=== PATIENT | female | born 1950 | race Caucasian/White ===

== ENCOUNTER → 2017-10-04 11:04 | Outpatient (REF) | payer MEDICARE, BC, SELFPAY | LOC: LBN 11:04 | DX: N89.8 Other specified noninflammatory disorders of vagina (principal) | CPT/HCPCS: 87480; 87510; 87660 ==

== ENCOUNTER → 2017-11-14 12:54 | Outpatient (BNVA) | payer MEDICARE, BC, SELFPAY | PROVIDERS: Visit Provider Surgery | DX: Z12.11 Encounter for screening for malignant neoplasm of colon (principal); Z80.0 Family history of malignant neoplasm of digestive organs ==

== ENCOUNTER 2017-11-21 16:58 | Emergency (ER) | payer MEDICARE, BC, SELFPAY ==
[2017-11-21 17:06] VITALS: BP 162/80; PULSE 87; RESP 17; TEMP 37.1; O2SAT 36
[2017-11-21] MEDS: Lidocaine 5% Patch 1 PATCH (18:28)
--- NOTE | 2017-11-21 18:33 | W.ED.GENAD ---
Discharge Plan Disposition Patient Disposition: HOME Condition: Good Discharge Details Chief Complaint: Nk/Back Pain Clinical Impression: Muscle spasm of back, Acute lumbar myofascial strain Primary Care Provider: Haven Segovia ED Provider: Elijah Haynes Home Meds and New Rx's Prescriptions: New cyclobenzaprine 5 mg tablet 5 mg PO BID PRN (Reason: muscle spasm) Qty: 10 RF: 0 Continue psyllium husk (aspartame) [Metamucil Sugar-Free (aspart)] 3.4 gram/5.8 gram powder PO DAILY RF: 0 polyethylene glycol 3350 17 gram powder in packet 255 g PO DAILY Qty: 15 RF: 0 calcium polycarbophil [Fiber-Tabs] 625 MG tablet 1 tab PO BID Qty: 60 RF: 0 levothyroxine 112 MCG tablet 112 mcg PO DAILY Qty: 90 RF: 3 rosuvastatin [Crestor] 20 MG tablet 20 mg PO DAILY Qty: 90 RF: 4 No Action metoprolol succinate 50 mg Tablet Extended Release 24 Hr 50 mg PO HS RF: 0 acetaminophen 500 mg Capsule 1,000 mg PO PRN PRNRF: 0 hydrochlorothiazide 12.5 MG capsule 12.5 mg PO HS RF: 0 Discharge Instructions Instructions: Muscle Strain (ED), Muscle Spasm (ED), Lower Back Exercises (ED) Additional Instructions: Feel free to return to the emergency department for any new or worsening symptoms otherwise follow-up with your primary care provider as needed for reassessment if not improving. He may continue to take diks-tgf-dikqpsy pain medication. Please be cautious with prescribed muscle relaxant as this may make you sleepy or drowsy Referrals: Haven Segovia, CORPORATE ADMINISTRATIVE ASSISTANT [Primary Care Provider] - (Follow-up with your primary care provider as needed in 1-2 weeks if not improving.) Discharge Data Discharge Date/Time-TO BE ENTERED AT DEPARTURE: 11/21/17 18:50 Medical Decision Making Patient presenting to the emergency department for sudden onset of sharp back pain. Patient does state that she had been gardening and bending over taking quite a bit this weekend and today when she was twisted turning around and coughed she noticed a sharp pulling in her back. Patient does have paraspinal tenderness to the left lumbar region with no vertebral tenderness, no straight leg raise, and no abnormalities in reflexes. Patient has no signs of cauda equina, epidural abscess, or emergent back pain findings. I suspect lower lumbar strain with muscular spasm due to the physical labor patient was doing this weekend. Patient prescribed low-dose Flexeril twice daily and given lidocaine patch to see if this resolves her symptoms. She was encouraged to follow-up with her primary care provider if not improving over the next week or to return to the emergency department immediately for any new or worsening symptoms. After discussion of diagnosis and plan of care patient is no further needs, questions, or concerns and states clear understanding to return to the emergency department for any worsening symptoms. HPI General Date/Time Provider Initiated Documentation: 11/21/17 17:30. Limitations to Documentation: no limitations. Information obtained by: patient and RN notes reviewed. History of Present Illness 67 year old F presents to the emergency department with the chief complaint of Back pain, described as moderate, with intensity rated at 7. Quality is described as aching and sharp, and is localized to the back. Patient started experiencing this day(s) (1) and it has been constant. No relieving factors improve symptom(s), Movement worsens symptoms . Patient notes no other symptoms.. Related Data Home Medications Medication Instructions Recorded Confirmed calcium polycarbophil [Fiber-Tabs] 1 tab PO BID #60 tab 09/13/16 11/24/17 levothyroxine 112 mcg PO DAILY #90 tab-cap 01/23/17 11/24/17 rosuvastatin [Crestor] 20 mg PO DAILY #90 tab 02/10/17 11/24/17 polyethylene glycol 3350 17 gram 255 g PO DAILY #15 each 11/14/17 11/21/17 oral powder packet psyllium husk (aspartame) 3.4 gm PO DAILY gm 11/14/17 11/14/17 gram/5.8 gram oral powder cyclobenzaprine 5 mg PO BID PRN #10 tab 11/21/17 11/24/17 acetaminophen 1,000 mg PO PRN PRN 11/24/17 11/24/17 hydrochlorothiazide 12.5 mg PO HS 11/24/17 11/24/17 metoprolol succinate 50 mg PO HS 11/24/17 11/24/17 Previous Rx's Medication Instructions Recorded levothyroxine 112 mcg PO DAILY #90 tab-cap 01/23/17 rosuvastatin [Crestor] 20 mg PO DAILY #90 tab 02/10/17 polyethylene glycol 3350 17 gram 255 g PO DAILY #15 each 11/14/17 oral powder packet cyclobenzaprine 5 mg PO BID PRN #10 tab 11/21/17 Allergies Allergy/AdvReac Type Severity Reaction Status Date / Time No Known Allergies Allergy Unverified 10/04/17 09:08 General Stated Complaint: Nk/Back Pain IVETTE: 4 Review of Systems Constitutional Denies chills and Denies fever(s) Cardiovascular Denies chest pain and Denies dyspnea on exertion Respiratory Denies dyspnea on exertion Gastrointestinal Denies abdominal pain, Denies change in bowel habits, Denies diarrhea, Denies nausea and Denies vomiting Genitourinary Denies urinary incontinence Musculoskeletal Reports as per HPI and Reports back pain Neurologic Denies sensory deficit PFSH Family History Mother Diabetes Father Essential hypertension Personal history of malignant neoplasm Heart disease Hyperlipidemia Brother Essential hypertension Hyperlipidemia Brother Essential hypertension Diabetes Hyperlipidemia Grandfather Essential hypertension Heart disease Grandfather Personal history of malignant neoplasm Grandmother Essential hypertension Heart disease Hyperlipidemia Grandmother Essential hypertension Heart disease Hyperlipidemia Medical History Cystocele (Chronic) Hyperlipidemia (Chronic) Hypertension (Chronic) Hypothyroidism (Chronic) Non-toxic multinodular goiter (Chronic) Overweight (Chronic) Social History household members: spouse current occupational status: retired Smoking/Tobacco Use Status: Never alcohol intake: current alcohol intake frequency: holidays/special occasions only substance use type: does not use Surgical History Colonoscopy - MAC (11/05/12) Dilation and curettage (~1974) Exam Const General: cooperative and no acute distress Orientation: alert, awake and oriented x3 Neck Neck: normal visual inspection, full ROM and no meningeal signs Resp Effort & Inspection: normal respiratory effort Auscultation: clear to auscultation bilaterally Cardio Rate: regular rate Rhythm: regular rhythm Heart Sounds: S1 normal and S2 normal GI Palpation: no hepatosplenomegaly, no aortic enlargement, no masses and no pulsatile masses Back/Spine/Pelvis Back: No mass, No erythema, No warmth, No sacral edema and No ecchymosis Thoracic/Lumbar Spine: straight leg raise negative bilaterally, pain with thoraco-lumbar ROM, paraspinal tenderness, thoraco-lumbar ROM limited and No lumbar spinal tenderness Pelvis: no pain with anterior-posterior compression, no pain with lateral compression and sciatic notch tenderness Neuro General: alert, awake and oriented x3 DTR's: Rt Patellar: 2+, Lt Patellar: 2+, Rt Ankle: 2+ and Lt Ankle: 2+ Course Vital Signs Temperature 37.1 C 11/21/17 17:06 Pulse 87 11/21/17 17:06 Respiratory Rate 17 11/21/17 17:06 Blood Pressure 162/80 H 11/21/17 17:06 Pulse Oximetry 36 L 11/21/17 17:06 Temperature 37.1 C 11/21/17 17:06 Temperature Source Temporal Artery Scan 11/21/17 17:06 Pulse 87 11/21/17 17:06 Respiratory Rate 17 11/21/17 17:06 Respiratory Effort 11/21/17 17:13 Blood Pressure 162/80 H 11/21/17 17:06 Pulse Oximetry 36 L 11/21/17 17:06
== END 2017-11-21 18:50 | disposition home or self-care (01) ==
PROVIDERS: Emergency Provider Nurse Practitioner Family
DX: S39.012A Strain of muscle, fascia and tendon of lower back, initial encounter (principal); M62.830 Muscle spasm of back; X50.1XXA Overexertion from prolonged static or awkward postures, initial encounter; Y93.H2 Activity, gardening and landscaping; I10 Essential (primary) hypertension
CPT/HCPCS: 99283

== ENCOUNTER 2017-11-28 07:32 | Day surgery (SDC) | payer MEDICARE, BC, SELFPAY ==
--- NOTE | 2017-11-28 06:41 | W.COLOREPORT ---
Colonoscopy Report Date of procedure: 11/28/17 Pre-op diagnosis general: Screening/ Family History Post-op diagnosis procedure note: other (Newell-diverticulosis) Procedure: Colonoscopy with polypectomy Surgeon: María Elena Sam Anesthesia proc note operative: MAC (Christian White CRNA) Estimated blood loss (mL): 3 Pathology: other (Transverse bx ?polyp) Complications: None Disposition: same day Indications: Mrs. Rios is a pleasant 67 year old female who is here for a colonoscopy. She has had a hyperplastic polyp in the past and has a family history of colon cancer in her father. Risks, benefits and complications have been reviewed. Complications include but are not limited to bleeding, pain, perforation, missed small lesion/polyp, sore throat, aspiration and adverse reaction to the medications. Questions were entertained and answered to their satisfaction and they wished to proceed. No guarantees were given or implied. Prep: Miralax/Dulcolax Procedure Start Time: 09:19 Procedure End Time: 09:40 Retraction Time: 20 minutes Findings: Newell-diverticulosis. ? small 2 millimeter polyp in the transverse colon Procedure Description: After informed consent was obtained the patient was taken to the procedure room and placed in a left decubitous position. Monitors were applied and a time out was done. The patients name, date of , procedure, allergies to medications and metal in their body was reviewed. The patient was then sedated. Once sedated and comfortable a rectal exam was done. External exam was normal. Internal exam revealed a normal sphincter tone and no palpable masses. The scope was then introduced and retroflexed. No internal hemorrhoids were identified. The scope was then advanced to the cecum without difficulty. The TI and appendiceal orifice were identified. The prep was good. The scope was then slowly retracted over 20 minutes back into the rectum. The scope was removed and the patient was woken up and taken back to Same day surgery in stable condition. There was Newell-diverticulosis and a biopsy was done in the transverse colon for a ? polyp. The patient tolerated the procedure well and there were no immediate complications. Follow up: The patient should follow up in 5 years unless they develop changes in bowel habits or other new gastrointestinal complaints.
--- NOTE | 2017-11-28 06:45 | PDOC.DSDIS_ITS ---
Discharge Plan Disposition Patient Disposition: HOME Condition: Good Discharge Details Reason For Visit: screening colonoscopy Attending Provider: María Elena Sam Primary Care Provider: Haven Segovia Home Meds and New Rx's Prescriptions: Continue psyllium husk (aspartame) [Metamucil Sugar-Free (aspart)] 3.4 gram/5.8 gram powder PO DAILY RF: 0 calcium polycarbophil [Fiber-Tabs] 625 MG tablet 1 tab PO BID Qty: 60 RF: 0 levothyroxine 112 MCG tablet 112 mcg PO DAILY Qty: 90 RF: 3 rosuvastatin [Crestor] 20 MG tablet 20 mg PO DAILY Qty: 90 RF: 4 cyclobenzaprine 5 mg tablet 5 mg PO BID PRN (Reason: muscle spasm) Qty: 10 RF: 0 metoprolol succinate 50 mg Tablet Extended Release 24 Hr 50 mg PO HS RF: 0 acetaminophen 500 mg Capsule 1,000 mg PO PRN PRNRF: 0 hydrochlorothiazide 12.5 MG capsule 12.5 mg PO HS RF: 0 Discontinued polyethylene glycol 3350 17 gram powder in packet 255 g PO DAILY Qty: 15 RF: 0 bisacodyl [Dulcolax (bisacodyl)] 5 mg Tablet,Delayed Release (Dr/Ec) 5 mg PO PRN PRNRF: 0 Discharge Instructions Instructions: Colonoscopy (DC), Diverticulosis (DC) Additional Instructions: Findings: Diverticulosis throughout the large bowel Possibly a small polyp although I am not sure. I biopsied the area Follow up: 5 years New Medications: none Please call if you develop: fevers >101.5 Nausea or Vomiting Abdominal pain that is not transient DAY SURGERY UNIT POST COLONOSCOPY INSTRUCTIONS 1. Because there will be medication in your system for the next 24 hours, you may feel a little sleepy. Your coordination will be affected. Therefore: a. Do not drive or operate dangerous equipment for 24 hours. b. Do not drink alcohol beverages for 24 hours (not even beer). c. Plan to go home and rest for the day. 2. Generally there are no restrictions on your activity after a day or so has gone by, but you may feel a bit fatigued for a few days. 3 After you arrive home you may have a light meal and return to a normal diet as you can tolerate it without feeling sick to your stomach. 4. After surgery, you may feel pain or discomfort. This should be only transient , but if it persists please contact your doctor. 5. If there are any questions regarding the findings of your procedure, please feel free to contact your doctor. 6. If you are unable to contact your doctor with a problem, contact the hospital at [phone]. 7. Continue all your regular medications unless directed otherwise. I understand the above instructions and have no questions. Signature of Patient or Responsible Adult Escort Date/Time Name of Responsible Adult Escort Signature of Nurse Date/Time Stand Alone Forms: Masood Lozada (PASHAU) Print Language: Sammarinese Activity:: Activity as Tolerated Diet:: High Fiber diet Discharge Orders Discharge Orders: Discharge Order (Routine); Ordered 11/28/17 Ordered By: María Elena Sam DS: Diagnosis Discharge Diagnosis (1) Family history of colon cancer: Status: Acute (2) Diverticulosis: Status: Acute
[2017-11-28 07:51] VITALS: BP 148/99; PULSE 88; RESP 16; TEMP 37.4; O2SAT 97
[2017-11-28] MEDS: Lactated Ringers 1,000 ML 80 ML IV (08:02)
--- NOTE | 2017-11-28 09:30 | BOWEL_PTH ---
PATIENT: Dax Rios LOC: [facility] U#:[id number] AGE/SX: 67/F ROOM: RE11/28/[address]: María Elena Sam MD : [id number] BED: DIS: 11/28/2017 SPEC #: [id number] RECD: 11/28/17 12:45 STATUS: MARTIN REBlanca #: [id number] MAYNOR: 11/28/17 09:[address]: María Elena Sam DEPT: Surgical Specimen RECD BY: Inez Puente ENTERED: 11/28/17 12:47 SP TYPE: Bowel OTHR DR: Haven Segovia APRN Tissues: 1 - BIOPSY BOWEL Procedures: GROSS AND MICRO LEVEL 4 Comments: [id number]
[2017-11-28 10:02] VITALS: BP 124/68; PULSE 83; RESP 16; TEMP 37.4; O2SAT 99
== END 2017-11-28 10:32 | disposition home or self-care (01) ==
PROVIDERS: Visit Provider Surgery
PROC: 0DJD8ZZ Inspection of Lower Intestinal Tract, Via Natural or Artificial Opening Endoscopic (ICD-10-PCS; CPT 45378; principal; 2017-11-28 09:30)
DX: Z12.11 Encounter for screening for malignant neoplasm of colon (principal); Z86.010 Personal history of colon polyps; Z80.0 Family history of malignant neoplasm of digestive organs; K57.30 Diverticulosis of large intestine without perforation or abscess without bleeding; I10 Essential (primary) hypertension
CPT/HCPCS: 45380; 88305

== ENCOUNTER → 2017-11-28 07:54 | Outpatient (BNVA) | payer MEDICARE, BC, SELFPAY | PROVIDERS: Visit Provider Surgery | DX: R69 Illness, unspecified (principal) ==

== ENCOUNTER 2018-11-08 02:27 | Outpatient (CLI) | payer MEDICARE, BC, SELFPAY ==
[2018-11-08 09:01] LABS: ALT 54 U/L (14-59); AST 37 U/L (15-37); Albumin 4.3 g/dL (3.4-5.0); Alkaline Phosphatase 73 U/L (46-116); BUN 14 mg/dL (7-18); Bilirubin, Total 0.4 mg/dL (0.2-1.0); CREATININE 0.94 mg/dL (0.55-1.02); Calcium 10.2 mg/dL (8.5-10.1); Calculated LDL 74 mg/dL; Chloride 104 mmol/L (98-107); Cholesterol 170 mg/dL (50-200); Estimated GFR 58.87 (mL/min/1.73m2); Glucose 89 mg/dL (70-100); HDL Cholesterol 51 mg/dL (40-60); Potassium 4.2 mmol/L (3.5-5.1); Sodium 141 mmol/L (136-145); TSH (W/Ref FT4) 1.09 uIU/mL (0.36-3.74); Total Protein 7.5 g/dL (6.4-8.2); Triglyceride 225 mg/dL (30-150)
== END 2018-11-08 02:47 ==
DX: I10 Essential (primary) hypertension (principal); E78.5 Hyperlipidemia, unspecified; E03.9 Hypothyroidism, unspecified; E04.2 Nontoxic multinodular goiter
CPT/HCPCS: 36415; 80053; 80061; 84443

== ENCOUNTER 2019-11-13 03:11 | Outpatient (CLI) | payer MEDICARE, BC, SELFPAY ==
[2019-11-13 09:13] LABS: ALT 33 U/L (14-59); AST 15 U/L (15-37); Albumin 4.5 g/dL (3.4-5.0); Alkaline Phosphatase 62 U/L (46-116); Anion Gap 6.2 mmol/L (3-11); BUN 19 mg/dL (7-18); CO2 29.8 mmol/L (21.0-32.0); CREATININE 0.91 mg/dL (0.55-1.02); Calcium 10.3 mg/dL (8.5-10.1); Calculated LDL 84 mg/dL (<100); Chloride 103 mmol/L (98-107); Cholesterol 193 mg/dL (<200); Glucose 83 mg/dL (74-106); HDL Cholesterol 52 mg/dL (40-60); Potassium 4.3 mmol/L (3.5-5.1); Sodium 139 mmol/L (136-145); TSH (W/Ref FT4) 1.58 uIU/mL (0.36-3.74); Total Protein 7.7 g/dL (6.4-8.2); Triglyceride 287 mg/dL (<150)
[2019-11-13 09:32] LABS: Bilirubin, Total 0.5 mg/dL (0.2-1.0)
== END 2019-11-13 03:31 ==
DX: I10 Essential (primary) hypertension (principal); E03.9 Hypothyroidism, unspecified; G47.00 Insomnia, unspecified
CPT/HCPCS: 36415; 80053; 80061; 84443

== ENCOUNTER 2019-12-11 01:30 | Outpatient (CLI) | payer MEDICARE, BC, SELFPAY ==
--- NOTE | 2019-12-11 07:30 | DI.MAMMO_ITS ---
EXAM: MG MAMMO SCREENING CLINICAL HISTORY: screening,Z12.39 TECHNIQUE: Bilateral full field digital CC and MLO mammographic images were obtained with 3D tomosyn thesis and utilizing computer aided detection (CAD). COMPARISON: Available for comparison. FINDINGS: Masses/Architectural Distortion: None seen. Microcalcifications: No suspicious pleomorphic-type are seen. Skin Thickening/Nipple Retraction: None. IMPRESSION: 1. No significant interval change with no specific features of malignancy noted. 2. Unless there is more urgent need, screening mammography is recommended, as per [employer] guidelines. BI-RADS Category 1 - Negative Breast Density - Category B - Scattered areas of fibroglandular density A negative radiographic report should not delay biopsy if a dominant or clinically suspicious mass is present. Up to ten percent of cancers are not identified on mammography. A negative report may reinforce clinical impression. Adenosis and dense breasts may obscure an underlying neoplasm. False positive reports average 6 to 10%. Patient will receive a letter notifying them of these results.
== END 2019-12-11 01:50 ==
DX: Z12.31 Encounter for screening mammogram for malignant neoplasm of breast (principal)
CPT/HCPCS: 77063; 77067

== ENCOUNTER 2020-09-28 10:23 | Outpatient (REF) | payer MEDICARE, BC, SELFPAY | END 2020-09-28 10:24 | disposition home or self-care (01) | LOC: LBN 10:23 | PROVIDERS: Visit Provider Physician Assistant | DX: N39.0 Urinary tract infection, site not specified (principal) | CPT/HCPCS: 87077; 87086; 87186 ==

== ENCOUNTER 2020-11-11 03:08 | Outpatient (CLI) | payer MEDICARE, BC, SELFPAY ==
[2020-11-11 08:37] LABS: ALT 29 U/L (14-59); AST 20 U/L (15-37); Albumin 4.4 g/dL (3.4-5.0); Alkaline Phosphatase 72 U/L (46-116); Anion Gap 10.7 mmol/L (3-11); BUN 22 mg/dL (7-18); Bilirubin, Total 0.5 mg/dL (0.2-1.0); CO2 26.3 mmol/L (21.0-32.0); CREATININE 1.1 mg/dL (0.55-1.02); Calculated LDL 84 mg/dL (<100); Chloride 104 mmol/L (98-107); Cholesterol 170 mg/dL (<200); Estimated GFR 48.82 (mL/min/1.73m2); Glucose 87 mg/dL (74-106); HDL Cholesterol 55 mg/dL (40-60); Potassium 3.6 mmol/L (3.5-5.1); Sodium 141 mmol/L (136-145); TSH (W/Ref FT4) 1.74 uIU/mL (0.36-3.74); Total Protein 7.7 g/dL (6.4-8.2); Triglyceride 158 mg/dL (<150)
== END 2020-11-11 03:09 | disposition home or self-care (01) ==
LOC: LBO 03:08
DX: E03.9 Hypothyroidism, unspecified; G47.00 Insomnia, unspecified; I10 Essential (primary) hypertension; Z00.00 Encounter for general adult medical examination without abnormal findings
CPT/HCPCS: 36415; 80053; 80061; 84443

== ENCOUNTER 2020-11-18 15:50 | Outpatient (REF) | payer MEDICARE, BC, SELFPAY ==
[2020-11-18 18:38] LABS: Bilirubin Negative (Negative); Blood Moderate (Negative); Clarity Clear (Clear); Glucose Negative (Negative); Ketones Negative (Negative); Leukocyte Esterase Trace (Negative); Nitrite Negative (Negative); Urobilinogen 0.2 EU/dL (Up TO 0.2); pH 6.5 (5-8)
[2020-11-18 18:49] LABS: Bacteria Few HPF (Negative); C & S Indicated? Yes; Crystals Negative HPF (Negative); Epithelial Cells Moderate HPF (Negative); Mucus Negative (Negative)
== END 2020-11-18 15:51 | disposition home or self-care (01) ==
LOC: LBN 15:50
PROVIDERS: Visit Provider Nurse Practitioner Family
DX: N93.9 Abnormal uterine and vaginal bleeding, unspecified (principal); N39.0 Urinary tract infection, site not specified
CPT/HCPCS: 81003; 81015; 87086

== ENCOUNTER 2020-12-03 14:14 | Outpatient (REF) | payer MEDICARE, BC, SELFPAY | END 2020-12-03 14:15 | disposition home or self-care (01) | LOC: LBN 14:14 | PROVIDERS: Visit Provider Obstetrics & Gynecology | DX: R30.0 Dysuria (principal) | CPT/HCPCS: 87086 ==

== ENCOUNTER 2020-12-22 00:18 | Outpatient (CLI) | payer MEDICARE, BC, SELFPAY ==
--- NOTE | 2020-12-22 08:00 | DI.MAMMO_ITS ---
Exam(s) MAMMO SCREENING EXAM: MAMMO SCREENING CLINICAL HISTORY: screening,Z12.39 TECHNIQUE: Mammograms were interpreted according to the usual protocol including computer analysis w [employer] CAD system, tomosynthesis and C-view imaging. COMPARISON: No exams were available for comparison FINDINGS: The breasts are composed of scattered fibroglandular densities, Breast Density category B. No suspicious masses or suspicious microcalcifications are seen. No skin thickening or abnormal axillary lymph nodes are seen. There has been no significant change from prior exams. IMPRESSION: BI-RADS Category 1, Negative mammogram Yearly screening mammography is recommended. Breast Density - Category B, scattered fibroglandular densities. A negative radiographic report should not delay biopsy if a dominant or clinically suspicious mass is present. Up to ten percent of cancers are not identified on mammography. A negative report may reinforce clinical impression. Adenosis and dense breasts may obscure an underlying neoplasm. False positive reports average 6 to 10%. Patient will receive a letter notifying them of these results.
== END 2020-12-22 00:38 ==
DX: Z12.31 Encounter for screening mammogram for malignant neoplasm of breast (principal)
CPT/HCPCS: 77063; 77067

== ENCOUNTER 2021-09-01 02:50 | Outpatient (CLI) | payer MEDICARE, BC, SELFPAY ==
[2021-09-01 09:24] LABS: Anion Gap 9.9 mmol/L (3-11); BUN 20 mg/dL (7-18); CO2 29.1 mmol/L (21.0-32.0); Calcium 10.1 mg/dL (8.5-10.1); Chloride 99 mmol/L (98-107); Estimated GFR 54.35 (mL/min/1.73m2); Glucose 91 mg/dL (74-106); Potassium 4.2 mmol/L (3.5-5.1); Sodium 138 mmol/L (136-145)
== END 2021-09-01 02:51 | disposition home or self-care (01) ==
LOC: LBO 02:51
DX: I10 Essential (primary) hypertension (principal)
CPT/HCPCS: 36415; 80048

== ENCOUNTER 2021-11-25 04:07 | Outpatient (CLI) | payer MEDICARE, BC, SELFPAY ==
[2021-11-25 09:04] LABS: ALT 31 U/L (14-59); AST 21 U/L (15-37); Albumin 4.1 g/dL (3.4-5.0); Alkaline Phosphatase 71 U/L (46-116); Anion Gap 9.2 mmol/L (3-11); BUN 23 mg/dL (7-18); Bilirubin, Total 0.4 mg/dL (0.2-1.0); CO2 28.8 mmol/L (21.0-32.0); Calcium 10.3 mg/dL (8.5-10.1); Chloride 100 mmol/L (98-107); Estimated GFR 59.49 (mL/min/1.73m2); Glucose 82 mg/dL (74-106); Potassium 3.6 mmol/L (3.5-5.1); Sodium 138 mmol/L (136-145); TSH (W/Ref FT4) 0.74 uIU/mL (0.36-3.74); Total Protein 7.9 g/dL (6.4-8.2)
== END 2021-11-25 04:08 | disposition home or self-care (01) ==
LOC: LBO 04:07
DX: I10 Essential (primary) hypertension (principal); E03.9 Hypothyroidism, unspecified
CPT/HCPCS: 36415; 80053; 84443

== ENCOUNTER → 2021-12-24 00:50 | Outpatient (CLI) | payer MEDICARE, BC, SELFPAY ==
--- NOTE | 2021-12-24 07:30 | DI.MAMMO_ITS ---
Exam(s) MAMMO SCREENING EXAM: MAMMO SCREENING CLINICAL HISTORY: screening,z12.39 TECHNIQUE: Bilateral full field digital CC and MLO mammographic images were obtained with 3D tomosyn thesis and utilizing computer aided detection (CAD). COMPARISON: Available for comparison. FINDINGS: Masses/Architectural Distortion: There is a 1 cm nodule in the upper outer quadrant of the right erlin st which shows slight increase in size compared to the prior examination. Microcalcifications: No suspicious pleomorphic-type are seen. Skin Thickening/Nipple Retraction: None. IMPRESSION: 1. Slight increase in size of the right breast nodule. 2. This area should be further evaluated with a spot compression view. Ultrasound may be indicated a t that time. BI-RADS Category 0 - Assessment Incomplete: Need additional imaging evaluation Breast Density - Category B - Scattered areas of fibroglandular density Breast density category C or D implies that the patient has dense breast tissue. Dense breast tissue is very common and is not abnormal but dense breast tissue can make it harder to find cancer on a ma mmogram. Also, dense breast tissue may increase their breast cancer risk. This information about the result of the mammogram report was provided to the patient to raise their awareness. Use this report when you speak with the patient about their risks for breast cancer, which includes their family hist ory. At that time, you may recommend for more screening tests (Ultrasound or MRI) as they might be us eful based on their risk. A negative radiographic report should not delay biopsy if a dominant or clinically suspicious mass is present. Up to ten percent of cancers are not identified on mammography. A negative report may reinforce clinical impression. Adenosis and dense breasts may obscure an underlying neoplasm. False positive reports average 6 to 10%. Patient will receive a letter notifying them of these results.
== END ==
PROVIDERS: Visit Provider Nurse Practitioner Family
DX: Z12.31 Encounter for screening mammogram for malignant neoplasm of breast (principal); N63.11 Unspecified lump in the right breast, upper outer quadrant
CPT/HCPCS: 77063; 77067

== ENCOUNTER → 2022-01-03 02:05 | Outpatient (CLI) | payer MEDICARE, BC, SELFPAY ==
--- NOTE | 2022-01-03 10:15 | DI.MAMMO_ITS ---
Exam(s) MG MAMMO SCREEN CALL BACK UNI US BREAST RT COMPLETE EXAM: MG MAMMO SCREEN CALL BACK UNI-RIGHT AND COMPLETE RIGHT BREAST ULTRASOUND CLINICAL HISTORY: F/U ABNL MAMMO, INCREASED SIZE 1 CM NODULE UPPER OUTER QUADRANT RT BREAST. TECHNIQUE: Unilateral spot mammographic images obtained with 3D tomosynthesisand utilizing computer aided detection (CAD). . Complete RIGHT breast Ultrasound was also performed, including all 4 quadrants, the retroareolar nataliia on, and the ipsilateral axilla. COMPARISON: Prior mammograms were reviewed. This additional imaging was performed due to findings described on the recent screening mammogram of 12/24/2021. FINDINGS: DIAGNOSTIC MAMMOGRAM: Additional mammographic views performed today do not dissipate this nodule and therefore proceeded wi th ultrasound. COMPLETE WEINSTEIN BREAST ULTRASOUND: Ultrasound performed today reveals a solitary finding which is at the 9 o'clock position corresponds to the nodule on the mammogram. This is a benign 9 by 4 millimeter cyst with no solid internal compo nents.. No other focal ultrasound findings in all 4 quadrants of the right breast. Scanning of the ipsilateral axilla reveals no significant adenopathy. IMPRESSION: 1. There is a 9 x 4 millimeter benign microcyst at the deep 9 o'clock position which corresponds to the nodule on the mammogram. 2. No solid lesions seen in the right breast. Appropriate follow-up is to keep this patient on her yearly mammogram schedule, with earlier imaging if a self detected breast change was noted.. The patient was informed of these findings by myself and recommendations prior to leaving the departm ent today. BI-RADS Category 2 - Benign Findings Breast Density - Category B - Scattered areas of fibroglandular density Breast density Category C or D implies that the patient has dense breast tissue. Dense breast tissue can make it harder to find cancer on a mammogram. Dense breast tissue is also associated with an incr eased risk of breast cancer. This information about the result of the mammogram report was provided to the patient to raise their awareness. Use this report when you speak with the patient about their risks for breast cancer, which includes their family history. At that time, you may recommend additional screening tests (Ultrasoun d or MRI) as these tests may add significant information. A negative radiographic report should not delay biopsy if a dominant or clinically suspicious mass is present. Up to ten percent of cancers are not identified on mammography. A negative report may reinforce clinical impression. Adenosis and dense breasts may obscure an underlying neoplasm. False positive reports average 6 to 10%. Patient will receive a letter notifying them of these results.
== END ==
PROVIDERS: PCP Nurse Practitioner Family; Visit Provider Nurse Practitioner Family
DX: N60.01 Solitary cyst of right breast (principal); Z12.31 Encounter for screening mammogram for malignant neoplasm of breast
CPT/HCPCS: 76642; 77063; 77067

== ENCOUNTER 2022-01-21 01:09 | Outpatient (CLI) | payer MEDICARE, BC, SELFPAY ==
[2022-01-21 10:35] LABS: Anion Gap 7.1 mmol/L (3-11); BUN 22 mg/dL (7-18); CO2 29.9 mmol/L (21.0-32.0); Calcium 10.9 mg/dL (8.5-10.1); Chloride 99 mmol/L (98-107); Estimated GFR 59.49 (mL/min/1.73m2); Glucose 93 mg/dL (74-106); Potassium 3.4 mmol/L (3.5-5.1); Sodium 136 mmol/L (136-145)
== END 2022-01-21 01:10 | disposition home or self-care (01) ==
LOC: LOS 01:09
PROVIDERS: PCP Nurse Practitioner Family; Visit Provider Nurse Practitioner Family
DX: I10 Essential (primary) hypertension (principal)
CPT/HCPCS: 36415; 80048

== ENCOUNTER 2022-05-06 00:07 | Outpatient (CLI) | payer MEDICARE, SELFPAY ==
--- NOTE | 2022-05-06 07:15 | DI.DEXA_ITS ---
Exam(s) XR DEXA BONE DENSITY W/WO ESPERANZA EXAM: XR DEXA BONE DENSITY W/WO ESPERANZA CLINICAL HISTORY: osteopenia,SCREENING FOR OSTEOPOROSIS IN POSTMENOPAUSAL WOMAN,Z78.0 TECHNIQUE: COMPARISON: Comparison is 08/06/2013. FINDINGS: Lateral Spine Image: Unremarkable. No compression deformities identified. Left hip: Total T-Score: -1.2. This compares to -0.6 on the prior examination. Total Z-Score: 0.6 T- and Z-scores: Findings are consistent with osteopenia. Lumbar Spine: Total T-Score: 0.4. This compares to -0.2 on the prior examination. Total Z-Score: 2.8 T- and Z-scores: Within normal limits. IMPRESSION: No evidence of osteoporosis.
== END 2022-05-06 00:27 ==
PROVIDERS: PCP Nurse Practitioner Family; Visit Provider Nurse Practitioner Family
DX: M85.80 Other specified disorders of bone density and structure, unspecified site (principal); Z78.0 Asymptomatic menopausal state; Z13.820 Encounter for screening for osteoporosis
CPT/HCPCS: 77080

== ENCOUNTER 2022-05-10 02:30 | Outpatient (CLI) | payer MEDICARE, SELFPAY ==
[2022-05-10 07:52] LABS: Anion Gap 9.2 mmol/L (3-11); BUN 24 mg/dL (7-18); CO2 28.8 mmol/L (21.0-32.0); CREATININE 1.1 mg/dL (0.55-1.02); Calcium 11.2 mg/dL (8.5-10.1); Chloride 98 mmol/L (98-107); Estimated GFR 52.73 (mL/min/1.73m2); Glucose 92 mg/dL (74-106); Potassium 3.7 mmol/L (3.5-5.1); Sodium 136 mmol/L (136-145)
== END 2022-05-10 02:31 | disposition home or self-care (01) ==
LOC: LBO 02:30
PROVIDERS: PCP Nurse Practitioner Family; Visit Provider Nurse Practitioner Family
DX: I10 Essential (primary) hypertension (principal)
CPT/HCPCS: 36415; 80048

== ENCOUNTER 2022-05-13 01:47 | Outpatient (CLI) | payer MEDICARE, SELFPAY ==
[2022-05-13 13:28] LABS: Vitamin D 25 Total 53.5 ng/mL (30-100)
[2022-05-13 22:51] LABS: Parathyroid Hormone,Intact 73 pg/mL (19-88)
== END 2022-05-13 01:48 | disposition home or self-care (01) ==
LOC: LBO 01:47
PROVIDERS: PCP Nurse Practitioner Family; Visit Provider Nurse Practitioner Family
DX: E83.52 Hypercalcemia (principal); I10 Essential (primary) hypertension
CPT/HCPCS: 36415; 82306; 83970

== ENCOUNTER 2022-06-23 02:05 | Outpatient (CLI) | payer MEDICARE, SELFPAY ==
[2022-06-23 08:19] LABS: BUN 17 mg/dL (7-18); CREATININE 1.1 mg/dL (0.55-1.02); Calcium 10.5 mg/dL (8.5-10.1); Calculated LDL 80 mg/dL (<100); Chloride 99 mmol/L (98-107); Cholesterol 191 mg/dL (<200); Estimated GFR 52.73 (mL/min/1.73m2); Glucose 90 mg/dL (74-106); HDL Cholesterol 51 mg/dL (40-60); Potassium 3.4 mmol/L (3.5-5.1); Sodium 138 mmol/L (136-145); Triglyceride 304 mg/dL (<150)
[2022-06-23 20:07] LABS: Parathyroid Hormone,Intact 50 pg/mL (19-88)
== END 2022-06-23 02:06 | disposition home or self-care (01) ==
LOC: LBO 02:05
PROVIDERS: PCP Nurse Practitioner Family; Visit Provider Nurse Practitioner Family
DX: E03.9 Hypothyroidism, unspecified (principal); E83.52 Hypercalcemia; E78.5 Hyperlipidemia, unspecified; I10 Essential (primary) hypertension
CPT/HCPCS: 36415; 80048; 80061; 83970; 84443

== ENCOUNTER 2022-11-24 05:07 | Outpatient (CLI) | payer MEDICARE, SELFPAY ==
[2022-11-24 08:04] LABS: Anion Gap 10.5 mmol/L (3-11); BUN 20 mg/dL (7-18); CO2 28.5 mmol/L (21.0-32.0); CREATININE 1.1 mg/dL (0.55-1.02); Calcium 11.1 mg/dL (8.5-10.1); Chloride 98 mmol/L (98-107); Estimated GFR 52.73 (mL/min/1.73m2); Glucose 98 mg/dL (74-106); Potassium 3.7 mmol/L (3.5-5.1); Sodium 137 mmol/L (136-145); TSH (W/Ref FT4) 0.83 uIU/mL (0.36-3.74)
== END 2022-11-24 05:08 | disposition home or self-care (01) ==
LOC: LBO 05:07
PROVIDERS: PCP Nurse Practitioner Family; Visit Provider Nurse Practitioner Family
DX: E03.9 Hypothyroidism, unspecified (principal); I10 Essential (primary) hypertension
CPT/HCPCS: 36415; 80048; 84443

== ENCOUNTER → 2023-01-10 00:07 | Outpatient (CLI) | payer MEDICARE, SELFPAY ==
--- NOTE | 2023-01-10 07:30 | DI.MAMMO_ITS ---
Exam(s) MAMMO SCREENING EXAM: MAMMO SCREENING CLINICAL HISTORY: screening,z12.39 TECHNIQUE: Mammograms were interpreted according to the usual protocol including computer analysis w [employer] CAD system, tomosynthesis and C-view imaging. COMPARISON: 2013 through 2021 FINDINGS: The breasts are composed of scattered fibroglandular densities, Breast Density category B. No suspicious masses or suspicious microcalcifications are seen. Circumscribed nodule again noted up per outer quadrant right breast corresponding to a cyst by prior ultrasound. No skin thickening or abnormal axillary lymph nodes are seen. There has been no significant change from prior exams. IMPRESSION: BI-RADS Category 2 - Negative Mammogram with benign findings. Yearly screening mammography is recomm ended. Breast Density - Category B, scattered fibroglandular densities. A negative radiographic report should not delay biopsy if a dominant or clinically suspicious mass is present. Up to ten percent of cancers are not identified on mammography. A negative report may reinforce clinical impression. Adenosis and dense breasts may obscure an underlying neoplasm. False positive reports average 6 to 10%. Patient will receive a letter notifying them of these results.
== END ==
PROVIDERS: PCP Nurse Practitioner Family; Visit Provider Nurse Practitioner Family
DX: Z12.31 Encounter for screening mammogram for malignant neoplasm of breast (principal)
CPT/HCPCS: 77063; 77067

== ENCOUNTER 2023-07-07 01:32 | Outpatient (CLI) | payer MEDICARE, SELFPAY ==
[2023-07-07 12:43] LABS: Abs Immature Grans 0.02 10^3/uL (0.0-0.06); Absolute Basophil Count 0.08 10^3/uL (0.0-0.2); Absolute Eosinophil Count 0.74 10^3/uL (0.0-0.7); Absolute Monocyte Count 0.67 10^3/uL (0.1-0.8); Absolute Neutrophil Count 5.71 10^3/uL (1.2-6.7); Basophils % 0.9 %; Eosinophils % 8.6 %; HCT 38.9 % (36.0-46.0); HGB 12.8 g/dL (11.2-15.7); Immature Grans % 0.2 %; Lymphocytes % 16.2 %; MCHC 32.9 % (32.0-36.0); MCV 91 fL (80-95); MPV 10.9 fL (8.0-11.0); Monocytes % 7.8 %; Neutrophils % 66.3 %; Platelet Count 275 10^3/uL (130-400); RBC 4.26 10^6/uL (3.93-5.22); RDW 12.7 % (11.7-14.6); RDW-SD 41.8 fL; WBC 8.62 10^3/uL (4.4-10.8)
[2023-07-07 13:41] LABS: ALT 28 U/L (14-59); AST 25 U/L (15-37); Albumin 4.5 g/dL (3.4-5.0); Alkaline Phosphatase 64 U/L (46-116); Anion Gap 8.8 mmol/L (3-11); BUN 23 mg/dL (7-18); Bilirubin, Total 0.5 mg/dL (0.2-1.0); CO2 28.2 mmol/L (21.0-32.0); Calcium 10.4 mg/dL (8.5-10.1); Chloride 99 mmol/L (98-107); Estimated GFR 58.75 (mL/min/1.73m2); Glucose 90 mg/dL (74-106); Potassium 3.9 mmol/L (3.5-5.1); Sodium 136 mmol/L (136-145); TSH (W/Ref FT4) 1.05 uIU/mL (0.36-3.74); Total Protein 7.5 g/dL (6.4-8.2)
== END 2023-07-07 01:33 | disposition home or self-care (01) ==
LOC: LOS 01:33
PROVIDERS: PCP Nurse Practitioner Family; Visit Provider Nurse Practitioner Family
DX: R53.83 Other fatigue (principal)
CPT/HCPCS: 36415; 80053; 84443; 85025

== ENCOUNTER → 2023-08-16 04:01 | Outpatient (CLI) | payer MEDICARE, SELFPAY ==
--- NOTE | 2023-08-16 08:30 | DI.US_ITS ---
APPROVED REPORT EXAM: Comprehensive 2D, Doppler, and color-flow Echocardiogram Patient Location: Out-Patient [employer]: Lis Juarez RDCS (AE) Indications: Systolic murmur Other Information Study Quality: Adequate Conclusion Normal left ventricular wall thickness and chamber size. Ejection fraction is 60%. Wall motion is n ormal Normal right ventricular size and function Both atria are normal in size There are no structural valvular abnormalities Moderate mitral regurgitation Estimated right ventricular systolic pressure is 29 mmHg Wall motion Left Ventricle The left ventricle is normal size. The left ventricular systolic function is normal. The left ventric ular ejection fraction is within the normal range. There is normal left ventricular wall thickness. T here is normal LV segmental wall motion. There is no ventricular septal defect visualized. LVEF is 60 %. Right Ventricle The right ventricle is normal size. The right ventricular systolic function is normal. Atria The left atrium size is normal. The right atrium size is normal. The interatrial septum is intact wit h no evidence for an atrial septal defect. Aortic Valve The aortic valve is normal in structure. Aortic valve is trileaflet. There is no aortic valvular sten osis. No aortic regurgitation is present. Mitral Valve The mitral valve is normal in structure. No evidence of mitral valve stenosis. Moderate mitral regur gitation. Tricuspid Valve The tricuspid valve is normal in structure. There is no tricuspid valve stenosis. Trace tricuspid reg urgitation. The RVSP is 28.9_ mmHg. Pulmonic Valve The pulmonary valve is normal in structure. There is no pulmonic valvular stenosis. There is no pulmo yomaira valvular regurgitation. Great Vessels The aortic root is normal in size. The ascending aorta is normal in size. Aortic arch is not well vis ualized. IVC is normal in size and collapses >50% with inspiration. Pericardium There is no pericardial effusion. 2D Dimensions IVSD d PLAX 0.81 cm F: 0.6-1.0 Ao Root d 2.30 cm F: 2.7 - 3.3 LVPW d PLAX 0.82 cm F: 0.6 - 1.0 Ao Asc Diam d 2.76 cm F: 2.3 - 3.1 LVID d PLAX 4.52 cm F: 3.8 - 5.2 LVDs 3.22 cm F: 2.2 - 3.5 LV EF Teichholz 55.5 % FS 28.74 % LV EDV (Teich) 93.5 mL LV ESV (Teich) 41.6 mL M-Mode TAPSE 2.50 cm (M/F) >1.7 Auto EF LV EDV A4C 82.3 mL LV EDV A2C 92.0 mL LV EDV BP 87.5 mL LV ESV A4C 36.4 mL LV ESV A2C 40.2 mL LV ESV BP 38.4 mL LVEF(%) A4C 55.7 % LVEF(%) A2C 56.3 % LVEF(%) BP 56.1 % LV SV A4C 45.9 ml LV SV A2C 51.8 ml LV SV BP 49.1 ml LV CO A4C 3.1 L/min LV CO A2C 3.5 L/min LV CO BP 3.3 L/min HR A4C 67.42 BPM HR A2C 68.44 BPM LV EDV Index (BP) LA Volume LA Length A4C 5.3 cm LA Length A2C 5.2 cm LA Area A4C s 18.68 cm2 LA Area A2C s 18.83 cm2 LA Vol A4C A-L 56.14 mL LA Vol A2C A-L 58.13 mL LA Vol Biplane A-L 57.7 mL LA Vol/BSA A4C A-L LA Vol/BSA A2C A-L LA Vol/BSA BP A-L 35.8 mL/m2 LA Vol A4C MOD 53.1 mL LA Vol A2C MOD 55.6 mL LA Vol BP MOD 54.5 mL RA Volume RA Area A4C 14.5 cm2 RA ESV A4C (A-L) 36.8mL RA Vol/BSA A4C A-L RA Length A4C 4.9 cm RA ESV A4C (MOD) 35.2mL LV Diastology MV E' medial 0.082 (>0.07 m/s) MV E Vmax 1.09 (0.4-1.3 m/s) MV E/E' MED 13.33 (<14) MV A Vmax 1.20 (0.4-1.3 m/s) MV E' lateral 0.108 (>0.1 m/s) E/A Ratio 0.9 MV E/E' LAT 10.13 (<14) MV E' Average 0.095 m/s MV E/E'(average) 11.51 Aortic Valve AoV Vmax 1.50 m/s LVOT Vmax 1.15 m/s AoV Peak Grad 9.0 mmHg LVOT Peak Grad 5.3 mmHg AoV Area (Vmax) 2.14 cm2 LVOT VTI 0.269 m AoV VTI 0.363 m LVOT Mean Grad 2.9 mmHg AoV Mean Clifford. 1.01 m/s LVOT SV 75.13 mL AoV Mean Grad 4.8 mmHg LVOT Diam s 1.85 cm AoV Area (VTI) 2.07 cm2 Velocity Ratio 0.77 Mitral Valve MV DT 189 (160-240 msec) MR Vmax 5.83 m/s MV Vmax TIPS 1.17 m/s MR VTI 2.185 m MV Mean Grad 2.5 (<2mmHg) MR Peak Grad 136.0 mmHg MV VTI 0.321 m MR Mean Grad 100.1 mmHg Pulmonary Valve PV Vmax 0.84 (0.5-1.5 m/s) RVOT Vmax 0.66 m/s PV Peak Grad 2.8 mmHg RVOT Peak Gr. 1.8 mmHg PV Mean Clifford 0.62 m/s RVOT VTI 0.144 m PV Mean Grad 1.7 mmHg RVOT Mean Gr. 0.9 mmHg Tricuspid Valve RA Pressure 3.00 mmHg TR Vmax 2.54 m/s TV S' 0.13 m/s TR Peak Grad 25.8 mmHg RVSP (TR) 28.9 mmHg
== END ==
PROVIDERS: PCP Nurse Practitioner Family; Visit Provider Nurse Practitioner Family
DX: R01.1 Cardiac murmur, unspecified (principal); I34.0 Nonrheumatic mitral (valve) insufficiency
CPT/HCPCS: 93306

== ENCOUNTER 2023-11-27 03:07 | Outpatient (CLI) | payer MEDICARE, SELFPAY ==
[2023-11-27 12:59] LABS: Hemoglobin A1C 5.5 % (<5.7)
[2023-11-27 19:04] LABS: Hepatitis C Ab w Rflx HCV PCR Negative (Negative)
[2023-11-27 19:11] LABS: HIV-1/2 Ag & Ab Screen Negative (Negative)
[2023-11-27 19:17] LABS: HBs Antibody, Quant <3.1 mIU/mL (See Note); Hep B Surface Ab Negative (See Note); Hepatitis B Core Antibody Negative (Negative); Hepatitis B Surface Antigen Negative (Negative)
== END 2023-11-27 03:08 | disposition home or self-care (01) ==
LOC: LOS 03:07
PROVIDERS: PCP Nurse Practitioner Family; Visit Provider Nurse Practitioner Family
DX: Z11.59 Encounter for screening for other viral diseases (principal); Z11.4 Encounter for screening for human immunodeficiency virus [HIV]; R73.01 Impaired fasting glucose
CPT/HCPCS: 36415; 86704; 86706; 86803; 87340; 87389; 83036

== ENCOUNTER 2024-01-12 00:15 | Outpatient (CLI) | payer MEDICARE, SELFPAY ==
--- NOTE | 2024-01-12 08:07 | DI.MAMMO_ITS ---
Exam(s) MAMMO SCREENING EXAM: MAMMO SCREENING CLINICAL HISTORY: screening,z12.39 TECHNIQUE: Mammograms were interpreted according to the usual protocol including computer analysis w [employer] CAD system, tomosynthesis and C-view imaging. COMPARISON: No exams were available for comparison FINDINGS: The breasts are composed of scattered fibroglandular densities, Breast Density category B. No suspicious masses or suspicious microcalcifications are seen. Decreased prominence of previously noted nodule seen in the upper outer quadrant. No skin thickening or abnormal axillary lymph nodes are seen. IMPRESSION: BI-RADS Category 1, Negative mammogram Yearly screening mammography is recommended. Breast Density - Category B, scattered fibroglandular densities. A negative radiographic report should not delay biopsy if a dominant or clinically suspicious mass is present. Up to ten percent of cancers are not identified on mammography. A negative report may reinforce clinical impression. Adenosis and dense breasts may obscure an underlying neoplasm. False positive reports average 6 to 10%. Patient will receive a letter notifying them of these results.
== END 2024-01-12 00:35 ==
LOC: DI 00:15
PROVIDERS: PCP Nurse Practitioner Family; Visit Provider Nurse Practitioner Family
DX: Z12.31 Encounter for screening mammogram for malignant neoplasm of breast (principal); R92.323 Mammographic fibroglandular density, bilateral breasts
CPT/HCPCS: 77063; 77067

== ENCOUNTER 2024-11-20 04:12 | Outpatient (CLI) | payer MEDICARE, SELFPAY ==
[2024-11-20 14:27] LABS: Hemoglobin A1C 5.2 % (<5.7)
[2024-11-20 14:41] LABS: ALT 29 U/L (14-59); AST 26 U/L (15-37); Albumin 4.3 g/dL (3.4-5.0); Alkaline Phosphatase 72 U/L (46-116); Anion Gap 9.6 mmol/L (3-11); BUN 23 mg/dL (7-18); Bilirubin, Total 0.5 mg/dL (0.2-1.0); CO2 29.4 mmol/L (21.0-32.0); Calcium 10.7 mg/dL (8.5-10.1); Calculated LDL 80 mg/dL (<100); Chloride 98 mmol/L (98-107); Cholesterol 166 mg/dL (<200); Estimated GFR 76.31 (mL/min/1.73m2); Glucose 83 mg/dL (74-106); HDL Cholesterol 53 mg/dL (>or=50); Potassium 3.5 mmol/L (3.5-5.1); Sodium 137 mmol/L (136-145); TSH (W/Ref FT4) 0.59 uIU/mL (0.36-3.74); Total Protein 7.7 g/dL (6.4-8.2); Triglyceride 168 mg/dL (<150)
== END 2024-11-20 04:13 | disposition home or self-care (01) ==
PROVIDERS: PCP Nurse Practitioner Family; Visit Provider Nurse Practitioner Family
DX: I34.0 Nonrheumatic mitral (valve) insufficiency (principal); E78.00 Pure hypercholesterolemia, unspecified; E03.9 Hypothyroidism, unspecified; I10 Essential (primary) hypertension; N18.30 Chronic kidney disease, stage 3 unspecified; E83.52 Hypercalcemia; Z46.89 Encounter for fitting and adjustment of other specified devices; M85.80 Other specified disorders of bone density and structure, unspecified site
CPT/HCPCS: 36415; 80053; 80061; 83036; 84443